=== PATIENT | male | born 1995 | race Caucasian/White ===

== ENCOUNTER 2019-11-11 12:30 | Inpatient (IN) | payer OTHER ==
[~2019-11-11] VITALS: Ht 170.2 cm; Wt 67.6 kg
[2019-11-11] MEDS ORDERED: PAXI20TA29 PO (12:39)
[2019-11-11 13:02] LABS: HEMOGLOBIN 13.7 g/dl (13.5-17.5); MEAN CORPUSCULAR HEMOGLOBIN 29.1 pg (27.0-33.0); MEAN CORPUSCULAR HGB CONC 32.6 g/dl (32.0-36.5); MEAN CORPUSCULAR VOLUME 89.2 fl (80.0-96.0); PLATELET COUNT, AUTOMATED 205 10^3/uL (150-450); RED BLOOD COUNT 4.71 10^6/uL (4.30-6.10); WHITE BLOOD COUNT 5.8 10^3/uL (4.0-10.0)
[2019-11-11 13:32] LABS: ACETAMINOPHEN LEVEL < 2.0 UG/ML (10.0-30.0); ALBUMIN 3.7 GM/DL (3.2-5.2); ALT/SGPT 28 U/L (12-78); BILIRUBIN,DIRECT 0.1 MG/DL (0.0-0.2); BILIRUBIN,TOTAL 0.3 MG/DL (0.2-1.0); BLOOD UREA NITROGEN 16 MG/DL (7-18); CALCIUM LEVEL 9.3 MG/DL (8.5-10.1); CARBON DIOXIDE LEVEL 30 MEQ/L (21-32); CHLORIDE LEVEL 104 MEQ/L (98-107); CREATININE FOR GFR 0.94 MG/DL (0.70-1.30); ETHYL ALCOHOL (ETHANOL) < 0.003 % (0.000-0.010); GLOMERULAR FILTRATION RATE > 60.0 (>60); GLUCOSE, FASTING 91 MG/DL (70-100); SALICYLATE LEVEL < 1.7 MG/DL (5.0-30.0); SODIUM LEVEL 138 MEQ/L (136-145); TOTAL PROTEIN 7.2 GM/DL (6.4-8.2)
[2019-11-11 15:18] LABS: AMPHETAMINES LEVEL URINE NEGATIVE (NEGATIVE); BARBITURATES URINE NEGATIVE (NEGATIVE); BENZODIAZEPINES URINE NEGATIVE (NEGATIVE); CANNABINOIDS URINE NEGATIVE (NEGATIVE); COCAINE METABOLITE URINE POSITIVE (NEGATIVE); METHADONE URINE NEGATIVE (NEGATIVE); OPIATES URINE NEGATIVE (NEGATIVE); PHENCYCLIDINE URINE NEGATIVE (NEGATIVE)
[2019-11-11] MEDS ORDERED: MOM 30ML SUSPENSION UDC PO PRN (16:15)
[2019-11-11] MEDS ORDERED: MAALOX 30 ML SUSP *UDC PO PRN (16:15)
[2019-11-11] MEDS ORDERED: ACETAMINOPHEN TAB 650MG DOSE (2X325MG) PO PRN (16:15)
[2019-11-11 18:54] VITALS: BP 126/71
[2019-11-11] MEDS: traZODone 50 MG TAB PO PRN (20:21)
[2019-11-12 05:52] VITALS: BP 118/58
[2019-11-12] MEDS: NICOTINE 21MG/24HR 1 EA TRANSDERMAL TD SCH (09:00)
--- NOTE | 2019-11-12 10:26 | MHHPEPDOC ---
General Date Of Admission: Nov 11, 2019 Legal Status: 9.39 Chief Complaint "I'm having thoughts to harm myself." History of Present Illness HISTORY OF THE PRESENT ILLNESS: Patient is a 24 -year-old , AD, male, with no previous psych history who was brought to ED by his Debby after pt endorse d SI with thoughts cut his wrist or throat, or jump in front of a car. Pt stated in the the ED that he's always suffered from thoughts of suicide and that he would tell his parents but they did nothing to get him help. Pt stated in the ED that he believed his thoughts of suicide started in elementary school when his friends would make fun of him for being small in stature. He stated in the ED that it began to affect him emotionally and he in turn developed social anxiety with difficulty breathing in social situations. Pt endorsed increase SI for an unknown amount of time due to feeling helpless and hopeless. He stated in the ED that he'd previously been diagnosed with depression, anxiety, and borderline personality d/o. Psychiatric Review of Systems Depression (2 or more weeks): depressed mood, feelings of worthlesness, difficulty concentrating, suicidal thoughts [place] (4 or more days of): denies Psychosis: denies PTSD: denies Anxiety: situational anxiety, stressor related anxiety Anxiety/ 6 months or more of: restlessness, keyed up, difficulty concentrating, irritability, personality cluster A,BC (b ?) Past Psychiatric History Previous Psychiatric Diagnosis: depression, anxiety, borderline personality d/o Previous Psychiatric Admissions: denies Suicide Attempts: denies Psychiatric Follow-up: [facility] Psychiatric medications: denies Past Medical History Medical Problems healthy adult Head Injury: No Seizures: No Hospitalizations: No Surgeries: No Family Medical/Psychiatric HX Medical Problems noncontributory Psychiatric Disorders: Yes (father has anxiety and ptsd) Addiction: No Suicide Attemps/Completions: No Addiction History nicotine (vapes), alcohol (socially with friends on the weekend), cocaine (utox positive) Social History Childhood: born and raised on [place] in a 2 parent home Abuse/Trauma: picked on for being small in elementary school Current Living Situation: [facility] Education: high school grad Employment: [email or web address] Social Support: parents Legal: denies Marital: single, never , no kids Mental Status Examination General Appearance: well groomed, appears stated age, hospital scubs/clothing Build: average Demeanor: average Eye Contact: average Activity: average Behavior: cooperative Speech: clear, spontaneous, normal volume, reg/rate,rhythm,volume Mood: euthymic, anxious Mood "better" Affect: full, appropriate, congruent, anxious Thought Process: logical/linear, depressed Thought Content (Delusions): denies SI, HI, AVH (endorses passive SI with no plan or intent, feels safe on unit and states he will not harm himself) Thought Content (Other): none reported Thought Content (Aggressive): none reported Perception (Hallucinations): none reported Perception (Other): none reported Cognition (Impairment of): none reported Cognition(Intelligence Est.): average Oriented: Awake, Alert, Oriented times three Insight: fair Judgment: Fair Psychosis: Denies Diagnoses depression unspecified r/o major depressive d/o recurrent w/o psychosis cocaine use d/o A-FIB/CHADSVASC A-FIB History Current/History of A-Fib/PAF?: No Assessment Pt seen and states he's been feeling depressed with thoughts of SI for a while. States he told his provider at [facility] and thoughts his paxil 20mg daily should be increased but his provider told him he "looked fine" and didn't increase it. Pt states today that he would like it increased to aid him with his mood, anxiety, and suicidal thoughts. Denies he will harm himself here and states he feels safe here. Admits to trying cocaine recently but denies regular use and is ag reeable to attending [facility] thru [facility] after d/c and abstaining from all substances even alcohol that he drinks socially with friends on the weekends. He has already been attending groups since admission that he finds helpful and plans to continue to go to them. Endorses occasional difficulty sleeping at night due to occasional nightmares and night sweats that was aided with the trazodone he took last night for sleep. Denies HI, hallucinations, delusions. Feels safe here. Initial Treatment Plan 1. Patient was admitted on a 9.39 status. 2. Complete history was obtained. 3. With patients permission, family will be contacted and database will be expanded. 4. Patients medication regimen will be reviewed and changed accordingly. 5. Patient will be provided with protected environment. 6. Patient will be treated with individual, group, and milieu therapies. 7. Patient will receive supportive psych-education. 8. Discharge planning will commence immediately. 9. Outpatient follow-up treatment will be strongly recommended. 10. The initial treatment plan will focus initially on: * Depression. * Risk for suicide. 11. increase paxil to 30mg daily ESTIMATED LENGTH OF STAY: 3-5 DAYS. TIME SPENT COUNSELING AND COORDINATING INITIAL CARE: 60 minutes. Vital Signs Vital Signs Date Time Temp Pulse Resp B/P (MAP) Pulse Ox O2 Delivery O2 Flow Rate FiO2 11/12/19 05:52 97.9 67 12 118/58 (78) 11/11/19 18:54 98 Room Air Laboratory Data 24H Labs Laboratory Tests 2 11/11/19 12:44: Nucleated Red Blood Cells % (auto) 0.0, Anion Gap 4L, Glomerular Filtration Rate > 60.0, Calcium Level 9.3, Total Bilirubin 0.3, Direct Bilirubin 0.1, Aspartate Amino Transf (AST/SGOT) 27, Alanine Aminotransferase (ALT/SGPT) 28, Alkaline Phosphatase 130H, Total Protein 7.2, Albumin 3.7, Albumin/Globulin Ratio 1.06, Thyroid Stimulating Hormone (TSH) 1.950, Salicylates Level < 1.7L, Acetaminophen Level < 2.0L, Ethyl Alcohol Level < 0.003 11/11/19 14:37: Urine Opiates Screen NEGATIVE, Urine Methadone Screen NEGATIVE, Urine Barbiturates Screen NEGATIVE, Urine Phencyclidine Screen NEGATIVE, Urine Amphetamines Screen NEGATIVE, Urine Benzodiazepines Screen NEGATIVE, Urine Cocaine Metabolite Screen POSITIVEH, Urine Cannabinoids Screen NEGATIVE CBC/BMP Laboratory Tests 11/11/19 12:44 Medications Scheduled Paroxetine HCl (Paxil) 20 Mg Tablet, 20 MG PO DAILY, (Reported) Allergies Coded Allergies: No Known Allergies (Unverified , 11/11/19) EJ GUERRERO DO Nov 12, 2019 10:26
[2019-11-12] MEDS ORDERED: PARoxetine 10MG TABLET PO ONE (11:00)
--- NOTE | 2019-11-12 16:03 | HPEPDOC ---
General Date of Admission Nov 11, 2019 at 16:13 Date of Service: Nov 12, 2019 Chief Complaint The patient is a 24-year-old male admitted with a reason for visit of Depression. Source: Patient Exam Limitations: No limitations Associated Symptoms: Denies Symptoms History of Present Illness Patient is a 24-year-old male who was brought to [facility] ED from her [facility], due to suicidal ideation with a plan of hanging himself. Patient reported that for the past few months he has had a worsening in his depression. He reported it to his [facility] who advised him to go to the behavioral health unit. He views the hospital as a safe place, and appreciates that he can get the help you that he needs. Patient denied any new or worsening medical conditions Home Medications Scheduled Paroxetine HCl (Paxil) 20 Mg Tablet, 20 MG PO DAILY, (Reported) Allergies Coded Allergies: No Known Allergies (Unverified , 11/11/19) Past Medical History Medical History Unremarkable Surgical History None Family History Significant Family History: Diabetes (father) Social History * Smoker: current smoker ([place]) Alcohol: occationally Drugs: cocaine A-FIB/CHADSVASC A-FIB History Current/History of A-Fib/PAF?: No Current PO Anticoag Therapy: No Review of Systems Constitutional: Denies: Chills, Fever, Night Sweats Eyes: Denies: Pain ENT: Denies: Head Aches Skin: Denies: Rash Pulmonary: Denies: Dyspnea, Cough Cardiovascular: Denies: Chest Pain, Palpitations, Edema Gastrointestinal: Denies: Nausea, Vomiting, Abdominal Pain, Diarrhea, Const ipation Genitourinary: Denies: Dysuria, Retention Hematologic: Denies: Bruising Musculoskeletal: Denies: Neck Pain, Back Pain, Joint Pain, Muscle Pain, Spasms Neurological: Denies: Weakness, Numbness Psych: Reports: Depression, Thoughts of Self Harm; Denies: Memory Issues, Thoughts of Harming Other Physical Examination General Exam: Positive: Alert, Cooperative, No Acute Distress Eye Exam: Positive: PERRLA, Conjunctiva & lids normal, EOMI; Negative: Sclera icteric ENT Exam: Positive: Atraumatic, Mucous membr. moist/pink, Pharynx Normal Neck Exam: Positive: Supple; Negative: thyromegaly Chest Exam: Positive: Clear to auscultation, Normal air movement Heart Exam: Positive: Rate Normal, Regular Rhythm, Normal S1, Normal S2; Negative: Murmurs, Rubs Telemetry: Positive: No significant arrhythmia Abdomen Exam: Positive: Normal bowel sounds, Soft; Negative: Tenderness Extremity Exam: Positive: Normal pulses; Negative: Clubbing, Cyanosis, Edema Skin Exam: Positive: Nl turgor and temperature, Breakdown Neuro Exam: Positive: Normal Gait, Normal Speech, Strength at 5/5 X4 ext, Cranial Nerves 3-12 NL Psych Exam: Positive: Mood NL, Oriented x 3 Vital Signs Vital Signs Date Time Temp Pulse Resp B/P (MAP) Pulse Ox O2 Delivery O2 Flow Rate FiO2 11/12/19 05:52 97.9 67 12 118/58 (78) 11/11/19 18:54 98 Room Air Assessment/Plan #1. Depression with suicidal ideation. Management as per behavioral health Medicine will sign off at this time. Please feel free to re-consult as needed. Plan / VTE VTE Prophylaxis Ordered?: No OLIVERIO MALONE PA-C Nov 12, 2019 16:03
[2019-11-12 17:53] VITALS: BP 113/53
[2019-11-12] MEDS: traZODone 50 MG TAB PO PRN (21:06)
[2019-11-13 07:13] VITALS: BP 97/52
[2019-11-13] MEDS: PARoxetine 10MG TABLET PO SCH (08:56)
[2019-11-13] MEDS: NICOTINE 21MG/24HR 1 EA TRANSDERMAL TD SCH (09:00)
--- NOTE | 2019-11-13 09:19 | MHIPNPDOC ---
[facility] Progress Note Progress Note DATE OF SERVICE: 11/13/19 HISTORY: Patient is a 24 -year-old , AD, male, with no previous psych history who was brought to ED by his Debby after pt endorsed SI with thoughts cut his wrist or throat, or jump in front of a car. Pt stated in the the ED that he's always suffered from thoughts of suicide and that he would tell his parents but they did nothing to get him help. Pt stated in the ED that he believed his thoughts of suicide started in elementary school when his friends would make fun of him for being small in stature. He stated in the ED that it began to affect him emotionally and he in turn developed social anxiety with difficulty breathing in social situations. Pt endorsed increase SI for an unknown amount of time due to feeling helpless and hopeless. He stated in the ED that he'd previously been diagnosed with depression, anxiety, and borderline personality d/o. Pt seen and states he's been feeling depressed with thoughts of SI for a while. States he told his provider at [facility] and thoughts his paxil 20mg daily should be increased but his provider told him he "looked fine" and didn't increase it. Pt states today that he would like it increased to aid him with his mood, anxiety, and suicidal thoughts. Denies he will harm himself here and states he feels safe here. Admits to trying cocaine recently but denies regular use and is agreeable to attending [facility] thru [facility] after d/c and abstaining from all substances even alcohol that he drinks socially with friends on the weekends. He has already been attending groups since admission that he finds helpful and plans to continue to go to them. Endorses occasional difficulty sleeping at night due to occasional nightmares and night sweats that was aided with the trazodone he took last night for sleep. Denies HI, hallucinations, delusions. Feels safe here. VITAL SIGNS: See below. NEW TEST RESULTS: See below. CURRENT MEDICATIONS: See below. MENTAL STATUS EXAMINATION: General Appearance: well groomed, appears stated age, hospital scubs/clothing Build: average Demeanor: average Eye Contact: average Activity: average Behavior: cooperative Speech: clear, spontaneous, normal volume, reg/rate,rhythm,volume Mood: euthymic, less anxious Mood "ok" Affect: full, appropriate, congruent, anxious Thought Process: logical/linear, less depressed Thought Content (Delusions): denies SI, HI, AVH (endorses passive SI with no plan or intent, feels safe on unit and states he will not harm himself) Thought Content (Other): none reported Thought Content (Aggressive): none reported Perception (Hallucinations): none reported Perception (Other): none reported Cognition (Impairment of): none reported Cognition(Intelligence Est.): average Oriented: Awake, Alert, Oriented times three Insight: fair Judgment: Fair Psychosis: Denies DIAGNOSES: depression unspecified r/o major depressive d/o recurrent w/o psychosis cocaine use d/o ASSESSMENT:Pt seen and states that his mood is "ok." States his mood is still the same, low with passive SI, and states he's waiting for the increase in paxil to be more beneficial as it was beneficial when he first started it. States he slept well last night with no nightmares after taking trazodone. Feels he is tolerating his medications and they're beneficial. He is attending groups and finding them helpful. He denies SI/HI, hallucinations, delusions. Pt feels safe here. MANAGEMENT PLAN: continue plan paxil 30mg daily trazodone 50mg qhs prn insomnia TIME SPENT: 30 minutes. Vital Signs Vital Signs Date Time Temp Pulse Resp B/P (MAP) Pulse Ox O2 Delivery O2 Flow Rate FiO2 11/13/19 07:13 97.4 73 16 97/52 (67) 11/11/19 18:54 98 Room Air Current Medications Current Medications Medications (Trade) Dose Ordered Sig/Anthony Route PRN Reason Start Time Stop Time Status Last Admin Dose Admin Acetaminophen (Tylenol Tab) 650 mg Q6HP PRN PO HEADACHE or DISCOMFORT 11/11/19 16:15 Al Hydrox/Mg Hydrox/Simethicone (Mylanta) 30 ml Q4HP PRN PO HEARTBURN/INDIGESTION 11/11/19 16:15 Home Med (Med Rec Complete!) ASDIRECTED XX 11/11/19 16:15 11/11/19 16:07 DC Hydroxyzine HCl (Atarax) 25 mg Q4HP PRN PO ANXIETY/AGITATION 11/11/19 16:15 Magnesium Hydroxide (Milk Of Magnesia) 30 ml DAILYPRN PRN PO CONSTIPATION 11/11/19 16:15 Nicotine (Nicoderm Cq 21mg) 1 patch DAILY TD 11/12/19 09:00 Paroxetine HCl (PAXil) 30 mg DAILY PO 11/13/19 09:00 11/13/19 08:56 Trazodone HCl (Desyrel) 50 mg QHSP PRN PO INSOMNIA 11/11/19 16:15 11/12/19 21:06 Allergies Coded Allergies: No Known Allergies (Unverified , 11/11/19) EJ GUERRERO DO Nov 13, 2019 9:19 am
[2019-11-13] MEDS: hydrOXYzine 25 MG TAB PO PRN (10:49)
[2019-11-13 17:49] VITALS: BP 132/62
[2019-11-13] MEDS: traZODone 50 MG TAB PO PRN (21:26)
[2019-11-14 06:14] VITALS: BP 101/50
[2019-11-14] MEDS: NICOTINE 21MG/24HR 1 EA TRANSDERMAL TD SCH (09:00)
[2019-11-14] MEDS: PARoxetine 10MG TABLET PO SCH (09:00)
--- NOTE | 2019-11-14 10:12 | MHIPNPDOC ---
[facility] Progress Note Progress Note DATE OF SERVICE: 11/14/19 HISTORY: Patient is a 24 -year-old , AD, male, with no previous psych history who was brought to ED by his Debby after pt endorsed SI with thoughts cut his wrist or throat, or jump in front of a car. Pt stated in the the ED that he's always suffered from thoughts of suicide and that he would tell his parents but they did nothing to get him help. Pt stated in the ED that he believed his thoughts of suicide started in elementary school when his friends would make fun of him for being small in stature. He stated in the ED that it began to affect him emotionally and he in turn developed social anxiety with difficulty breathing in social situations. Pt endorsed increase SI for an unknown amount of time due to feeling helpless and hopeless. He stated in the ED that he'd previously been diagnosed with depression, anxiety, and borderline personality d/o. Pt seen and states he's been feeling depressed with thoughts of SI for a while. States he told his provider at [facility] and thoughts his paxil 20mg daily should be increased but his provider told him he "looked fine" and didn't increase it. Pt states today that he would like it increased to aid him with his mood, anxiety, and suicidal thoughts. Denies he will harm himself here and states he feels safe here. Admits to trying cocaine recently but denies regular use and is agreeable to attending [facility] thru [facility] after d/c and abstaining from all substances even alcohol that he drinks socially with friends on the weekends. He has already been attending groups since admission that he finds helpful and plans to continue to go to them. Endorses occasional difficulty sleeping at night due to occasional nightmares and night sweats that was aided with the trazodone he took last night for sleep. Denies HI, hallucinations, delusions. Feels safe here. VITAL SIGNS: See below. NEW TEST RESULTS: See below. CURRENT MEDICATIONS: See below. MENTAL STATUS EXAMINATION: General Appearance: well groomed, appears stated age, hospital scubs/clothing Build: average Demeanor: average Eye Contact: average Activity: average Behavior: cooperative Speech: clear, spontaneous, normal volume, reg/rate,rhythm,volume Mood: dysthymic, less anxious Mood "I feel the same" Affect: constricted, appropriate, congruent, less anxious Thought Process: logical/linear, less depressed Thought Content (Delusions): denies SI, HI, AVH (endorses passive SI with no plan or intent, feels safe on unit and states he will not harm himself) Thought Content (Other): none reported Thought Content (Aggressive): none reported Perception (Hallucinations): none reported Perception (Other): none reported Cognition (Impairment of): none reported Cognition(Intelligence Est.): average Oriented: Awake, Alert, Oriented times three Insight: fair Judgment: Fair Psychosis: Denies DIAGNOSES: depression unspecified r/o major depressive d/o recurrent w/o psychosis cocaine use d/o ASSESSMENT:Pt seen in his room and states he still feels depressed and that the increase in paxil is not beneficial. Also endorses increased daytime fatigue with paxil. Asking to try a different antidepressant to see if it's more beneficial and is agreeable to trying prozac, med risk/benefits discussed. Continues to have passive SI but denies plans or intent. States he slept well last night with no nightmares after taking trazodone. Feels he is tolerating his medications. He is attending groups and finding them helpful. He denies SI/HI, hallucinations, delusions. Pt feels safe here. MANAGEMENT PLAN: d/c paxil and start prozac 20mg daily prozac 20mg daily trazodone 50mg qhs prn insomnia TIME SPENT: 30 minutes. Vital Signs Vital Signs Date Time Temp Pulse Resp B/P (MAP) Pulse Ox O2 Delivery O2 Flow Rate FiO2 11/14/19 06:14 98.2 63 16 101/50 (67) 11/11/19 18:54 98 Room Air Current Medications Current Medications Medications (Trade) Dose Ordered Sig/Anthony Route PRN Reason Start Time Stop Time Status Last Admin Dose Admin Acetaminophen (Tylenol Tab) 650 mg Q6HP PRN PO HEADACHE or DISCOMFORT 11/11/19 16:15 Al Hydrox/Mg Hydrox/Simethicone (Mylanta) 30 ml Q4HP PRN PO HEARTBURN/INDIGESTION 11/11/19 16:15 Home Med (Med Rec Complete!) ASDIRECTED XX 11/11/19 16:15 11/11/19 16:07 DC Hydroxyzine HCl (Atarax) 25 mg Q4HP PRN PO ANXIETY/AGITATION 11/11/19 16:15 11/13/19 10:49 Magnesium Hydroxide (Milk Of Magnesia) 30 ml DAILYPRN PRN PO CONSTIPATION 11/11/19 16:15 Nicotine (Nicoderm Cq 21mg) 1 patch DAILY TD 11/12/19 09:00 Paroxetine HCl (PAXil) 30 mg DAILY PO 11/13/19 09:00 11/13/19 08:56 Trazodone HCl (Desyrel) 50 mg QHSP PRN PO INSOMNIA 11/11/19 16:15 11/13/19 21:26 Allergies Coded Allergies: No Known Allergies (Unverified , 11/11/19) EJ GUERRERO DO Nov 14, 2019 10:12 am
[2019-11-14] MEDS ORDERED: FLUoxetine 20 MG CAP PO ONE (11:00)
[2019-11-14 15:33] VITALS: BP 124/59
[2019-11-14] MEDS: traZODone 50 MG TAB PO PRN (21:03)
[2019-11-15 06:26] VITALS: BP 96/55
[2019-11-15] MEDS: FLUoxetine 20 MG CAP PO SCH (08:51)
[2019-11-15] MEDS: NICOTINE 21MG/24HR 1 EA TRANSDERMAL TD SCH (08:51)
--- NOTE | 2019-11-15 09:24 | MHIPNPDOC ---
[facility] Progress Note Progress Note DATE OF SERVICE: 11/15/19 HISTORY: Patient is a 24 -year-old , AD, male, with no previous psych history who was brought to ED by his Debby after pt endorsed SI with thoughts cut his wrist or throat, or jump in front of a car. Pt stated in the the ED that he's always suffered from thoughts of suicide and that he would tell his parents but they did nothing to get him help. Pt stated in the ED that he believed his thoughts of suicide started in elementary school when his friends would make fun of him for being small in stature. He stated in the ED that it began to affect him emotionally and he in turn developed social anxiety with difficulty breathing in social situations. Pt endorsed increase SI for an unknown amount of time due to feeling helpless and hopeless. He stated in the ED that he'd previously been diagnosed with depression, anxiety, and borderline personality d/o. Pt seen and states he's been feeling depressed with thoughts of SI for a while. States he told his provider at [facility] and thoughts his paxil 20mg daily should be increased but his provider told him he "looked fine" and didn't increase it. Pt states today that he would like it increased to aid him with his mood, anxiety, and suicidal thoughts. Denies he will harm himself here and states he feels safe here. Admits to trying cocaine recently but denies regular use and is agreeable to attending [facility] thru [facility] after d/c and abstaining from all substances even alcohol that he drinks socially with friends on the weekends. He has already been attending groups since admission that he finds helpful and plans to continue to go to them. Endorses occasional difficulty sleeping at night due to occasional nightmares and night sweats that was aided with the trazodone he took last night for sleep. Denies HI, hallucinations, delusions. Feels safe here. VITAL SIGNS: See below. NEW TEST RESULTS: See below. CURRENT MEDICATIONS: See below. MENTAL STATUS EXAMINATION: General Appearance: well groomed, appears stated age, hospital scubs/clothing Build: average Demeanor: average Eye Contact: average Activity: average Behavior: cooperative Speech: clear, spontaneous, normal volume, reg/rate,rhythm,volume Mood: more euthymic, less anxious Mood "better" Affect: less constricted, appropriate, congruent, less anxious Thought Process: logical/linear, less depressed Thought Content (Delusions): denies SI, HI, AVH (endorses passive SI with no plan or intent, feels safe on unit and states he will not harm himself) Thought Content (Other): none reported Thought Content (Aggressive): none reported Perception (Hallucinations): none reported Perception (Other): none reported Cognition (Impairment of): none reported Cognition(Intelligence Est.): average Oriented: Awake, Alert, Oriented times three Insight: fair Judgment: Fair Psychosis: Denies DIAGNOSES: depression unspecified r/o major depressive d/o recurrent w/o psychosis cocaine use d/o ASSESSMENT:Pt seen and states his mood is improved due to starting prozac yesterday and feels he's tolerating it much better than the paxil he had been on. Also endorses increased daytime fatigue with paxil. Continues to have passive SI but denies plans or intent and states it's becoming less after starting proac. States he slept well last night with no nightmares after taking trazodone. Feels he is tolerating his medications. He is attending groups and finding them helpful. He denies HI, hallucinations, delusions. Pt feels safe here. MANAGEMENT PLAN: d/c planning for Monday prozac 20mg daily trazodone 50mg qhs prn insomnia TIME SPENT: 30 minutes. Vital Signs Vital Signs Date Time Temp Pulse Resp B/P (MAP) Pulse Ox O2 Delivery O2 Flow Rate FiO2 11/15/19 06:26 97.4 65 12 96/55 (69) Room Air 11/11/19 18:54 98 Current Medications Current Medications Medications (Trade) Dose Ordered Sig/Anthony Route PRN Reason Start Time Stop Time Status Last Admin Dose Admin Acetaminophen (Tylenol Tab) 650 mg Q6HP PRN PO HEADACHE or DISCOMFORT 11/11/19 16:15 Al Hydrox/Mg Hydrox/Simethicone (Mylanta) 30 ml Q4HP PRN PO HEARTBURN/INDIGESTION 11/11/19 16:15 Fluoxetine HCl (PROzac) 20 mg DAILY PO 11/15/19 09:00 11/15/19 08:51 Home Med (Med Rec Complete!) ASDIRECTED XX 11/11/19 16:15 11/11/19 16:07 DC Hydroxyzine HCl (Atarax) 25 mg Q4HP PRN PO ANXIETY/AGITATION 11/11/19 16:15 11/13/19 10:49 Magnesium Hydroxide (Milk Of Magnesia) 30 ml DAILYPRN PRN PO CONSTIPATION 11/11/19 16:15 Nicotine (Nicoderm Cq 21mg) 1 patch DAILY TD 11/12/19 09:00 Paroxetine HCl (PAXil) 30 mg DAILY PO 11/13/19 09:00 11/14/19 10:12 DC 11/13/19 08:56 Trazodone HCl (Desyrel) 50 mg QHSP PRN PO INSOMNIA 11/11/19 16:15 11/14/19 21:03 Allergies Coded Allergies: No Known Allergies (Unverified , 11/11/19) EJ GUERRERO DO Nov 15, 2019 9:24 am
[2019-11-15 16:00] VITALS: BP 145/73
[2019-11-15] MEDS: hydrOXYzine 25 MG TAB PO PRN (19:43)
[2019-11-15] MEDS: traZODone 50 MG TAB PO PRN (21:18)
[2019-11-16 06:40] VITALS: BP 118/56
[2019-11-16] MEDS: NICOTINE 21MG/24HR 1 EA TRANSDERMAL TD SCH (09:00)
[2019-11-16] MEDS: FLUoxetine 20 MG CAP PO SCH (09:34)
[2019-11-16] MEDS: hydrOXYzine 25 MG TAB PO PRN (14:20)
[2019-11-16 17:27] VITALS: BP 110/53
[2019-11-16] MEDS: traZODone 50 MG TAB PO PRN (22:34)
[2019-11-17 06:26] VITALS: BP 131/58
[2019-11-17] MEDS: NICOTINE 21MG/24HR 1 EA TRANSDERMAL TD SCH (08:46)
[2019-11-17] MEDS: FLUoxetine 20 MG CAP PO SCH (08:47)
[2019-11-17] MEDS: hydrOXYzine 25 MG TAB PO PRN ×3 (10:28→20:42)
[2019-11-17 15:00] VITALS: BP 116/58
[2019-11-17] MEDS: traZODone 50 MG TAB PO PRN (22:05)
[2019-11-18 06:08] VITALS: BP 126/62
[2019-11-18] MEDS: FLUoxetine 20 MG CAP PO SCH (08:46)
[2019-11-18] MEDS: NICOTINE 21MG/24HR 1 EA TRANSDERMAL TD SCH (08:47)
--- NOTE | 2019-11-18 09:10 | MHDSPDOC ---
[facility] Discharge Summary Discharge Summary DATE OF ADMISSION: Nov 11, 2019 at 4:13 pm DATE OF DISCHARGE: Nov 18, 2019 DISCHARGE DIAGNOSES: depression unspecified r/o major depressive d/o recurrent w/o psychosis cocaine use d/o REASON FOR ADMISSION: Patient is a 24 -year-old , AD, male, with no previous psych history who was brought to ED by his Debby after pt endorsed SI with thoughts cut his wrist or throat, or jump in front of a car. Pt stated in the the ED that he's always suffered from thoughts of suicide and that he would tell his parents but they did nothing to get him help. Pt stated in the ED that he believed his thoughts of suicide started in elementary school when his friends would make fun of him for being small in stature. He stated in the ED that it began to affect him emotionally and he in turn developed social anxiety with difficulty breathing in social situations. Pt endorsed increase SI for an unknown amount of time due to feeling helpless and hopeless. He stated in the ED that he'd previously been diagnosed with depression, anxiety, and borderline personality d/o. Pt seen and states he's been feeling depressed with thoughts of SI for a while. States he told his provider at [facility] and thoughts his paxil 20mg daily should be increased but his provider told him he "looked fine" and didn't increase it. Pt states today that he would like it increased to aid him with his mood, anxiety, and suicidal thoughts. Denies he will harm himself here and states he feels safe here. Admits to trying cocaine recently but denies regular use and is agreeable to attending [facility] thru [facility] after d/c and abstaining from all substances even alcohol that he drinks socially with friends on the weekends. He has already been attending groups since admission that he finds helpful and plans to continue to go to them. Endorses occasional difficulty sleeping at night due to occasional nightmares and night sweats that was aided with the trazodone he took last night for sleep. Denies HI, hallucinations, delusions. Feels safe here. CONSULTANTS INVOLVED: none TREATMENT AND PROGRESS ON THE UNIT : Pt was admitted to [facility], seen for psychiatric assessment and his outpatient paxil was discontinued as he didn't feel it was helpful and he was started on prozac 20mg daily. He was provided trazodone 50mg qhs prn insomnia. Pt found his medications beneficial and tolerated them well. He attended groups daily during his stay. His symptoms improved with treatment. On day of discharge he denied depression, anxiety, insomnia, SI/HI, hallucinations, delusions. He was discharged home after Debby meeting with follow-up at [facility]. He felt safe for discharge. DISCHARGE ASSESSMENT: Pt seen and states his mood is "good" today and he's looking to going home with his Debby today. States he's tolerating his prozac well and feels it's beneficial. Also endorses increased daytime fatigue with paxil. States he slept well last night with no nightmares after taking trazodone. Feels he is tolerating his medications. He is attending groups and finding them helpful. He denies depression, anxiety, insomnia, SI/HI, hallucinations, delusions. Pt feels safe to d/c home today with his Debby. MENTAL STATUS EXAMINATION ON DISCHARGE: General Appearance: well groomed, appears stated age, hospital scubs/clothing Build: average Demeanor: average Eye Contact: average Activity: average Behavior: cooperative Speech: clear, spontaneous, normal volume, reg/rate,rhythm,volume Mood: euthymic, full range Mood "good" Affect: euthymic, appropriate, congruent Thought Process: logical/linear Thought Content (Delusions): denies SI, HI, AVH Thought Content (Aggressive): none reported Perception (Hallucinations): none reported Perception (Other): none reported Cognition (Impairment of): none reported Cognition(Intelligence Est.): average Oriented: Awake, Alert, Oriented times three Insight: good Judgment: good Psychosis: Denies MEDICATIONS ON DISCHARGE: prozac 20mg daily trazodone 50mg qhs prn insomnia PLAN/FOLLOWUP ARRANGEMENTS: D/c home with Debby with follow-up at [facility]. The amount of time spent in the coordination of care for this patient was approximately 30 minutes. Vital Signs/I&Os Vital Signs Date Time Temp Pulse Resp B/P (MAP) Pulse Ox O2 Delivery O2 Flow Rate FiO2 11/18/19 06:08 97.5 56 18 126/62 (83) 11/17/19 15:00 100 Room Air Medications Scheduled Paroxetine HCl (Paxil) 20 Mg Tablet, 20 MG PO DAILY, (Reported) Allergies Coded Allergies: No Known Allergies (Unverified , 11/11/19) EJ GUERRERO DO Nov 18, 2019 9:10 am
[2019-11-18] MEDS ORDERED: HYDR-3363 PO (09:37)
[2019-11-18] MEDS ORDERED: FLUO20CA22 PO (09:37)
[2019-11-18] MEDS ORDERED: TRAZ-252 PO (09:37)
== END 2019-11-18 12:50 | disposition home or self-care (01) | DRG 885 ==
LOC: M ED 12:30 → M ED INP 16:13 → M PSY 17:30
PROVIDERS: ADMIT Psychiatry & Neurology Psychiatry; ATTEND Psychiatry & Neurology Psychiatry
DX: F33.9 Major depressive disorder, recurrent, unspecified (principal); F17.290 Nicotine dependence, other tobacco product, uncomplicated; F14.10 Cocaine abuse, uncomplicated; Z79.899 Other long term (current) drug therapy